=== PATIENT | male | born 1985 | race Caucasian/White ===

== ENCOUNTER 2018-04-23 00:25 | Emergency (ER) | payer OTHER ==
--- NOTE | 2018-04-23 01:49 | ED ---
Throat Pain/Nasal Congestion - HPI Summary HPI Summary: A 33 y/o M presents to ED with c/o R eye pain around his R tear duct onset 2-3 days ago. Associated sx: migraine; mild photophobia; erythematous sclera of R eye; rash surrounding R eye; mildly blurred vision onset tonight. Pt does not wear glasses. He states the eye pain occurred prior to the rash. The rash is painful and mildly pruritic. Pt states having a B12 injection last week otherwise no daily meds. - History of Current Complaint Chief Complaint: EDEyeProblem Time Seen by Provider: 04/23/18 01:45 Hx Obtained From: Patient Onset/Duration: Gradual Onset, Lasting Days, Lasting Weeks Severity: Moderate - Allergies/Home Medications Allergies/Adverse Reactions: Allergies Allergy/AdvReac Type Severity Reaction Status Date / Time No Known Allergies Allergy Verified 04/23/18 00:32 Home Medications: Home Medications Cyanocobalamin (Vitamin B-12) [B-12 Compliance Injection] 1,000 mcg IM MONTHLY 04/23/18 [History Confirmed 04/23/18] PMH/Surg Hx/FS Hx/Imm Hx Previously Healthy: Yes Respiratory History: Denies: Hx Chronic Obstructive Pulmonary Disease (COPD) Opthamlomology History: Denies: Hx Contacts or Glasses, Hx Legally Blind Neurological History: Denies: Hx Dementia Infectious Disease History: No Infectious Disease History: Denies: Traveled Outside the [place] in Last 30 Days - Family History Known Family History: Positive: Hypertension - grandmother, Diabetes - grandmother Negative: Cardiac Disease - Social History Occupation: Student Lives: With Family Alcohol Use: Rare Substance Use Type: Reports: None Smoking Status (MU): Never Smoked Tobacco Review of Systems Negative: Fever Positive: Photophobia - mild, Blurred Vision - mild, Erythema - R sclera, Other - pos: R eye pain Positive: Rash - surrounding R eye Positive: Headache - migraine All Other Systems Reviewed And Are Negative: Yes Physical Exam - Summary Physical Exam Summary: VITAL SIGNS: Reviewed. GENERAL: Patient is a well-developed and nourished MALE who is lying comfortable in the stretcher. Patient is not in any acute respiratory distress. HEAD AND FACE: No signs of trauma. No ecchymosis, hematomas or skull depressions. No sinus tenderness. Vesicular rash over R-side face. EYES: PERRLA, EOMI x 2, Mild injected conjunctiva. No nystagmus. Pt has one vesicle over the temporal side of conjunctiva of R eye. Corneal exam is intact. There is no corneal edema. EARS: Hearing grossly intact. Ear canals and tympanic membranes are within normal limits. MOUTH: Oropharynx within normal limits. NECK: Supple, trachea is midline, no adenopathy, no JVD, no carotid bruit, no c- spine tenderness, neck with full ROM. CHEST: Symmetric, no tenderness at palpation LUNGS: Clear to auscultation bilaterally. No wheezing or crackles. CVS: Regular rate and rhythm, S1 and S2 present, no murmurs or gallops appreciated. ABDOMEN: Soft, non-tender. No signs of distention. No rebound no guarding, and no masses palpated. Bowel sounds are normal. EXTREMITIES: FROM in all major joints, no edema, no cyanosis or clubbing. NEURO: Alert and oriented x 3. No acute neurological deficits. Speech is normal and follows commands. SKIN: Dry and warm. Vesicular rash over R-side face. Triage Information Reviewed: Yes Vital Signs On Initial Exam: Initial Vitals Temp Pulse Resp BP Pulse Ox 98.5 F 62 16 138/71 97 10 00:30 04/23/18 00:30 04/23/18 00:30 04/23/18 00:30 04/23/18 00:30 Vital Signs Reviewed: Yes Diagnostics - Vital Signs Vital Signs Temp Pulse Resp BP Pulse Ox 04/23/18 00:30 98.5 F 62 16 138/71 97 - Laboratory Lab Statement: Any lab studies that have been ordered have been reviewed, and results considered in the medical decision making process. Re-Evaluation - Re-Evaluation 1 Re-Evaluation Time: 02:28 Change: Improved Comment: Pt is feeling better after medication. Discussing plans to dispo with pt. Advised to follow up with opthamology tomorrow. EENT Course/Dx - Course Course Of Treatment: Pt is a 33 y/o M presenting with R eye pain around his R tear duct onset 2-3 days ago. Associated sx: migraine; mild photophobia; erythematous sclera of R eye; rash surrounding R eye; mildly blurred vision onset tonight. Pt does not wear glasses. He states the eye pain occurred prior to the rash. Physical exam found shingles on R-side of face. Because pt has mild conjuctiva injection will advise pt to follow up with opthamology tomorrow. - Diagnoses Provider Diagnoses: Shingles Discharge - Sign-Out/Discharge Documenting (check all that apply): Patient Departure - DC - Discharge Plan Condition: Stable Disposition: HOME Prescriptions: hydrOXYzine HCL TAB* [Atarax 25 MG TAB*] 25 mg PO TID PRN #20 tab PRN Reason: Itching oxyCODONE/Acetamin 5/325 MG* [Percocet 5/325 TAB*] 1 tab PO Q6H PRN #14 tab MDD 4 PRN Reason: Pain ValACYclovir (*) [Valtrex 1 GM(*)] 1 gm PO TID #20 tab Patient Education Materials: Oxycodone/Acetaminophen (By mouth), Hydroxyzine ( By mouth), Valacyclovir (By mouth), Shingles (ED) Referrals: [facility] [Outside] [facility] [Outside] Brain Carbajal MD [Medical Doctor] - 1 Day Additional Instructions: Follow up with Dr. Carbajal, ophthalmology, tomorrow. Please establish with a primary care provider and follow up in 2-3 days. RETURN TO THE EMERGENCY DEPARTMENT FOR CHANGING OR WORSENING SYMPTOMS. - Attestation Statements Document Initiated by Scribe: Yes Documenting Scribe: Britt Corcoran Provider For Whom Scribe is Documenting (Include Credential): Dr. Marie Kirk MD Scribe Attestation: Britt Valles, scribed for Dr. Marie Kirk MD on 04/23/18 at 0232.
[2018-04-23] MEDS ORDERED: ValACYclovir (*) 1 GM TAB PO ONE (01:51)
[2018-04-23] MEDS: hydrOXYzine HCL TAB* 25 MG PO ONE ×2 (02:16→02:27)
[2018-04-23] MEDS: oxyCODONE/Acetamin 5/325 MG* TAB PO ONE ×2 (02:16→02:27)
[2018-04-23 03:08] VITALS: BP 121/74
== END 2018-04-23 03:08 | disposition home or self-care (01) ==
LOC: ED 00:25
DX: B02.9 Zoster without complications (principal); H53.149 Visual discomfort, unspecified; H53.8 Other visual disturbances; R21 Rash and other nonspecific skin eruption
CPT/HCPCS: 99282; A9270-GY